=== PATIENT | female | born 2000 | race Hispanic/Latino ===

== ENCOUNTER 2025-02-23 14:41 | Emergency (ER) | payer OTHER ==
[~2025-02-23] VITALS: Ht 154.9 cm; Wt 48.2 kg
[2025-02-23] MEDS ORDERED: PNV1TABL16 PO (14:53)
[2025-02-23 15:59] LABS: BASO # 0.1 10^3/uL (0.0-0.2); BASO % 0.6 % (0.0-1.0); EOS # 0.1 10^3/uL (0.0-0.5); EOS % 1.2 % (0.0-3.0); LYMPH # 2.2 10^3/uL (1.5-5.0); LYMPH % 25.6 % (24.0-44.0); MONO # 0.8 10^3/uL (0.0-0.8); MONO % 9.5 % (2.0-8.0); NEUTROPHILS # 5.4 10^3/uL (1.5-8.5); NEUTROPHILS % 62.9 % (36.0-66.0); PLATELET COUNT, AUTOMATED 251 10^3/uL (150-450)
[2025-02-23 16:07] LABS: KETONE, URINE AUTO RFX 1+ mg/dL (NEGATIVE); LEUKOCYTE ESTERASE UR AUTO RFX NEGATIVE (NEGATIVE); MUCUS, URINE RFX SMALL (NEGATIVE); NITRITE, URINE AUTO RFX NEGATIVE (NEGATIVE); RBC, URINE AUTO RFX 1 /HPF (0-3); SQUAM EPITHELIAL CELL UR AURFX 4 /HPF (0-6); TRANSITIONAL EPITHELIAL AU RFX <1 /HPF; WBC, URINE AUTO RFX 1 /HPF (0-3)
[2025-02-23 16:30] LABS: CALCIUM LEVEL 9.2 MG/DL (8.5-10.1); CARBON DIOXIDE LEVEL 24 MMOL/L (20-31); CHLORIDE LEVEL 102 MMOL/L (98-107); CK-MB VALUE MASS < 1.0 NG/ML (<3.6); CPK CREATINE PHOSPHOKINASE 58 U/L (34-145); CREATININE FOR GFR 0.63 MG/DL (0.55-1.30); GLOMERULAR FILTRATION RATE > 90.0 (>60); POTASSIUM SERUM 4.0 MMOL/L (3.5-5.1); SODIUM LEVEL 137 MMOL/L (136-145)
[2025-02-23 16:55] LABS: HCG, SERUM QUANTITATIVE 59750.2 MIU/ML (<4.2)
[2025-02-23] MEDS: ONDANSETRON 4MG 2ML VIAL IV ONE (18:23)
[2025-02-23] MEDS: NS (Normal Saline) 0.9% 1,000 ML IV ONE (18:24)
[2025-02-23 18:44] VITALS: BP 104/67; TEMP 97.5; O2SAT 99
[2025-02-23] MEDS ORDERED: ONDA-282 PO (19:32)
[2025-02-24] MEDS ORDERED: CEPH500C PO (10:05)
== END 2025-02-23 20:06 | disposition home or self-care (01) ==
LOC: M ED 14:41
DX: O21.0 Mild hyperemesis gravidarum (principal); O34.81 Maternal care for other abnormalities of pelvic organs, first trimester; N83.11 Corpus luteum cyst of right ovary; I49.1 Atrial premature depolarization; Z3A.01 Less than 8 weeks gestation of pregnancy; Z79.899 Other long term (current) drug therapy; Z79.2 Long term (current) use of antibiotics
CPT/HCPCS: 76801; 80048; 81001; 82550; 82553; 84484; 84702; 85025; 93005; 96361; 96374; 99284; J2405

== ENCOUNTER → 2025-03-27 | Outpatient (CLI) | payer OTHER ==
[~2025-03-27] MED LIST: CEPH500C PO; ONDA-282 PO; PNV1TABL16 PO
[2025-03-27 14:29] LABS: PLATELET COUNT, AUTOMATED 261 10^3/uL (150-450)
[2025-03-27 15:03] LABS: HIV 1&2 SCREEN NEGATIVE (NEGATIVE)
[2025-03-27 15:10] LABS: HEPATITIS C VIRUS ABY INDEX < 0.02 INDEX (<0.8)
[2025-03-27 15:16] LABS: Trichomonas vaginalis (AMP) NOT DETECTED (NEGATIVE)
[2025-03-27 15:40] LABS: GC DNA AMPLIFICATION NEGATIVE (NEGATIVE)
== END ==
LOC: M PLALAB 09:40
PROVIDERS: ATTEND Nurse Practitioner Family
DX: Z34.80 Encounter for supervision of other normal pregnancy, unspecified trimester (principal)

== ENCOUNTER → 2025-03-27 | Outpatient (REF) | payer OTHER | LOC: M PLALAB 09:26 | PROVIDERS: ATTEND Nurse Practitioner Family | DX: Z34.80 Encounter for supervision of other normal pregnancy, unspecified trimester (principal) ==